=== PATIENT | male | born 1975 | race Caucasian/White ===

== ENCOUNTER → 2016-04-07 | Outpatient (CLI) | payer OTHER ==
[2016-04-07 09:40] LABS: DAYS OF ABSTINENCE 7; METHOD OF COLLECTION MASTURBATION; SEMEN TIME OF COLLECTION 748; TYPE OF SPECIMEN CONTAINER STERILE
[2016-04-07 09:41] LABS: SEMEN COLOR GRAY OR GRAY-WHITE (GRY/GRYWHTE)
[2016-04-07 09:42] LABS: SPERM VIABILITY STAIN NOT INDICATED % (>58%)
== END | disposition home or self-care (01) ==
LOC: C.LAB 08:45
PROVIDERS: ATTEND Specialist
DX: Z31.41 Encounter for fertility testing (principal)